=== PATIENT | female | born 1990 | race Two or more races ===

== ENCOUNTER 2023-11-17 11:28 | Emergency (ER) | payer OTHER ==
[~2023-11-17] VITALS: Ht 175.3 cm; Wt 74.8 kg
[2023-11-17 12:49] LABS: HEMOGLOBIN 12.9 g/dL (12.0-15.00); MEAN CELL VOLUME 89.3 fL (80.00-100.00); MEAN CORPUSCULAR HEMOGLOBIN 30.4 pg (27.00-32.0); PLATELET COUNT 220 K/uL (150-450); RED BLOOD COUNT 4.26 M/uL (4.00-6.00); RED CELL DISTRIBUTION WIDTH 13.3 % (11.5-14.5)
[2023-11-17 13:02] LABS: CALCIUM 8.9 mg/dL (8.5-10.1); CREATININE SERUM 0.76 mg/dL (0.55-1.02); GFR 87.64; POTASSIUM 4.03 mEq/L (3.5-5.1)
[2023-11-17 13:06] LABS: URINE APPEARANCE Cloudy; URINE BILIRRUBIN Negative (NEGATIVE); URINE BLOOD Large; URINE COLOR Yellow; URINE GLUCOSE Negative (NEGATIVE); URINE LEUKOCYTE Large; URINE NITRATE Negative; URINE PROTEIN 30 (NEGATIVE); URINE UROBILINOGEN 0.2 E.U./dl
[2023-11-17 13:09] LABS: URINE BACTERIA 1175.5 uL (0.0-1933); URINE EPITHELIAL CELLS 12.6 uL (0.0-38.8); URINE RBC 170.5 uL (0.0-20.8); URINE WBC 3170.8 uL (0.0-23.2)
== END 2023-11-17 14:11 | disposition home or self-care (01) ==
LOC: ER 11:28
PROVIDERS: General Practice
DX: R10.84 Generalized abdominal pain (principal)